=== PATIENT | male | born 1990 | race African-American/Black ===

== ENCOUNTER 2023-05-16 09:58 | Outpatient (CLI) | payer OTHER ==
[2023-05-16 11:16] LABS: Hematocrit 45.3 % (38.8-50.0); Hemoglobin 15.7 g/dL (13.5-17.5); Mean Corpuscular HGB CONC 34.7 g/dL (32.0-36.0); Mean Corpuscular Hemoglobin 32.3 pg (27.0-33.0); Mean Corpuscular Volume 93.2 fl (81.2-95.1); Mean Platelet Volume 11.3 fl (7.4-10.4); Platelet Count 276 10x3/uL (150-450); Red Blood Cell (RBC) Count 4.86 10x6/uL (4.32-5.72); White Blood Cell (WBC) Count 10.3 10x3/uL (3.5-10.5)
[2023-05-16 11:36] LABS: Anion Gap 13 mmol/L (10-20); BUN (Urea Nitrogen) 10 mg/dL (8.9-20.6); Calc. Creatinine Clearance 0 mL/min (70-130); Calcium 9.5 mg/dL (7.8-10.44); Carbon Dioxide 24 mmol/L (22-29); Chloride 105 mmol/L (98-107); Estimated GFR 98; Glucose 100 mg/dL (70-105); Potassium 4.3 mmol/L (3.5-5.1); Sodium 138 mmol/L (136-145)
== END 2023-05-16 09:59 | disposition home or self-care (01) ==
LOC: CSHLAB 09:58
PROVIDERS: ATTEND Orthopaedic Surgery
DX: Z01.812 Encounter for preprocedural laboratory examination (principal); S86.011A Strain of right Achilles tendon, initial encounter
CPT/HCPCS: 80048; 82306; 85027

== ENCOUNTER 2023-05-19 05:51 | Day surgery (SDC) | payer OTHER ==
[2023-05-16 08:37] VITALS: BMI 27.0
[2023-05-19] MEDS ORDERED: Acetaminophen 325 MG TAB ONE (06:27)
[2023-05-19] MEDS ORDERED: Gabapentin 300 MG CAP ONE (06:27)
[2023-05-19] MEDS ORDERED: Ketorolac Tromethamine 30 MG (1 mL) VIAL ONE ×2 (06:27→07:21)
[2023-05-19] MEDS ORDERED: oFLOXacin 0.3% Opth 5 ML BOT ONE (06:40)
[2023-05-19] MEDS ORDERED: Bupivacaine PF 0.5% 30 ML VIAL ONE (06:53)
[2023-05-19] MEDS ORDERED: CEFAZOLIN 2 GM VIAL ONE (06:54)
[2023-05-19] MEDS ORDERED: Midazolam HCl 2 mg/2 ml Vial ONE (07:02)
[2023-05-19] MEDS ORDERED: Rocuronium Bromide 10 MG/ML (10ML VIAL) ONE (07:02)
[2023-05-19] MEDS ORDERED: Esmolol 100 MG/10 ML VIAL ONE (07:02)
[2023-05-19] MEDS ORDERED: Fentanyl 250 MCG/5 ML VIAL ONE (07:02)
[2023-05-19] MEDS ORDERED: Lidocaine 1% PF 5 ML VIAL ONE (07:02)
[2023-05-19] MEDS ORDERED: PROPOFOL 20 ML ONE (07:02)
[2023-05-19] MEDS ORDERED: Dexmedetomidine 200 MCG/2 ML VIAL ONE (07:14)
[2023-05-19] MEDS ORDERED: HYDROmorphone 0.5 MG/0.5 ML SYRINGE ONE (07:21)
[2023-05-19] MEDS ORDERED: Tranexamic Acid 1,000 MG/10 ML VIAL ONE (07:21)
[2023-05-19] MEDS ORDERED: ePHEDrine Sulfate 50 MG/10 ML VIAL ONE (07:42)
[2023-05-19] MEDS ORDERED: PHENYLEPHRINE-NS 100 MCG/ML 10 ML SYRINGE ONE (07:52)
[2023-05-19] MEDS ORDERED: SUGAMMADEX SODIUM 200 MG/2 ML VIAL ONE (07:58)
[2023-05-19] MEDS ORDERED: HYDROcodone/Acetaminophen 5/325 mg Tablet ONE (09:12)
== END 2023-05-19 09:50 | disposition home or self-care (01) ==
LOC: CSHSDC 05:51
PROVIDERS: ATTEND Orthopaedic Surgery
PROC: 0LQN0ZZ Repair Right Lower Leg Tendon, Open Approach (ICD-10-PCS; principal; 2023-05-19)
DX: S86.011A Strain of right Achilles tendon, initial encounter (principal); X50.0XXA Overexertion from strenuous movement or load, initial encounter
CPT/HCPCS: C1713; J0665; J1170; J1885; J2250; J2704; J3010